=== PATIENT | female | born 2000 | race Caucasian/White ===

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

== ENCOUNTER 2019-04-27 00:13 | Emergency (ER) | payer SELFPAY ==
[~2019-04-27] VITALS: Ht 165.1 cm; Wt 92.3 kg
[~2019-04-27 00:13] MED LIST changes: +CIPR500T4 PO; -CYCL-319 PO; +CYCL10TA7 PO; +HYDR-4011 PO; -HYDR-906 PO; +IBUP800T48 PO; +MECL12.574 PO
[2019-04-27 00:27] VITALS: BP 142/90; PULSE 87; RESP 16; Ht 165.1 cm; Wt 92.3 kg
== END 2019-04-27 04:09 | disposition left against medical advice (07) ==
LOC: FTE 00:13
DX: Z53.21 Procedure and treatment not carried out due to patient leaving prior to being seen by health care provider (principal)